=== PATIENT | male | born 1995 | race Caucasian/White ===

== ENCOUNTER 2019-09-26 11:30 | Emergency (ER) | payer OTHER, SELFPAY ==
[2019-09-26 11:45] VITALS: BP 103/57; PULSE 120; RESP 17; TEMP 39.2; O2SAT 96; BMI 19.8
--- NOTE | 2019-09-26 11:53 | ED_ITS ---
Entered by Mansi Maher, acting as scribe for Porter Wiseman DO Sep 26, 2019 11:30 HPI - SOB/Dyspnea General: Chief Complaint: Shortness of Breath/Dyspnea Stated Complaint: N/V/D COUGH Time Seen by Provider: 09/26/19 12:06 History of Present Illness: HPI Narrative: 24 yo male presents with shortness of breath. Pt states that he has asthma and when he is sick it will flair up. Pt states that he has been sick for about 2 days. pt states that he feels weak and nauseated. Pt states that he feels dehydrated and has body aches. MD elicited complaint: shortness of breath and cough Pertinent past history: asthma Onset (ago): day(s) (2) Severity: moderate Exacerbating factors: movement Known history of: asthma Associated symptoms: Reports extremity pain, fever(s) and nausea; Deny chest pain, dizziness, orthopnea, palpitations, polydipsia, polyuria or syncope Treatment prior to arrival: none Review of Systems Const: Reports: fever, fatigue and malaise; Denies: chills, body aches or night sweats Eyes: Denies: change in vision or blurry vision ENMT: Denies: throat pain, oral sores/lesions, dental pain, nasal discharge or nasal congestion Card: Denies: chest pain, palpitations, irregular heart rhythm, edema, syncope, shortness of breath on exertion, shortness of breath when lying down or leg pain with exertion Resp: Reports: shortness of breath and wheezing; Denies: productive cough or non-productive cough GI: Reports: nausea : Denies: flank pain, difficulty urinating, painful urination, urinary frequency, urinary urgency, urinary incontinence or blood in urine Musc: Reports: back pain, extremity pain and joint pain; Denies: neck pain, extremity swelling or joint swelling Skin/Breast: Denies: rash, itching or redness Neuro: Denies: headache, numbness in extremities, weakness in extremities, changes in sensation, lack of coordination, difficulty walking, frequent falls, dizziness, vertigo or confusion Psych: Denies: anxiety, depression, loss of interest, visual hallucinations, auditory hallucinations, suicidal ideation or homicidal ideation Endo: Denies: excessive urination, excessive thirst, tired all the time or cold intolerance Rk/Lymph: Denies: easy bruising, easy bleeding, petechiae, enlarged lymph nodes or tender lymph nodes PFSH ED PFSH: Statuses (acute, chronic, etc) shown below reflect problem list status as previously entered and may not be historically accurate Medical History Asthma (Acute) Social History Smoking and tobacco status: never smoked Physical Exam Const: COMMON NORMALS: average body habitus, oriented x3 and alert GENERAL APPEARANCE: cooperative, comfortable, well kempt and well developed NUTRITIONAL APPEARANCE: not obese ORIENTATION/CONSCIOUSNESS: Yes awake, Yes oriented to person and Yes oriented to place HENMT: COMMON NORMALS: normocephalic, head/scalp atraumatic, EAC's normal, TM's normal bilaterally, external nose normal, moist oral mucous membranes and oropharynx normal HEAD & SCALP: normocephalic and atraumatic NOSE: external nose normal EXTERNAL AUDITORY CANAL: EAC's normal TYMPANIC MEMBRANE: TM's normal bilaterally MOUTH: oral and palatal mucosa normal, lip normal and tongue normal THROAT: posterior oropharynx normal and tonsils normal Eye: COMMON NORMALS: PERRL, EOMs intact bilaterally, conjunctivae normal and no scleral icterus CONJUNCTIVA: Yes conjunctivae normal PUPIL: Yes PERRL Neck/C-Spine: COMMON NORMALS: full ROM, no lymphadenopathy, supple, no meningeal signs and thyroid normal THYROID: thyroid normal and asymmetrical Lymph: LYMPHATIC: no lymphadenopathy noted Resp: COMMON NORMALS: normal respiratory effort, no retractions, no use of accessory muscles and clear to auscultation bilaterally AUSCULTATION: clear to auscultation bilaterally Cardio: COMMON NORMALS: regular rate and regular rhythm RATE: regular rate RHYTHM: regular rhythm HEART SOUNDS: no murmurs GI: COMMON NORMALS: normal to inspection, nondistended, normoactive bowel sounds, soft to palpation and no hepatosplenomegaly PALPATION: Yes soft and Yes no hepatosplenomegaly : COMMON NORMALS: Yes no CVA tenderness BLADDER/KIDNEY EXAM: Yes no CVA tenderness Back/Pelvis: COMMON NORMALS: no CVA tenderness LUMBAR SPINE/LOWER BACK: Yes normal to inspection Extremity: COMMON NORMALS: no clubbing, cyanosis or edema, no calf tenderness and no pedal edema Neuro: COMMON NORMALS: oriented x3 SENSORIUM/ORIENTATION: Yes alert, Yes oriented to person and Yes oriented to place MENINGEAL SIGNS: Yes no meningeal signs Psych: APPEARANCE: Yes well kempt Skin: COMMON NORMALS: no rashes or lesions noted and skin turgor normal GENERAL SKIN EXAM: no rashes or lesions noted and turgor normal Course Vital Signs: Vital signs: Vital Signs Temperature 102.5 F H 09/26/19 11:45 Pulse Rate 113 H 09/26/19 14:49 Respiratory Rate 16 09/26/19 14:49 Blood Pressure 110/66 09/26/19 14:49 Pulse Oximetry 96 09/26/19 14:49 MDM - SOB/Dyspnea Lab Data: Attestation: I reviewed the patient's lab results. Labs: Lab Results 09/26/19 Range/Units 12:00 Influenza Type A A g Positive H (Negative) POC Influenza B Ag Negative (Negative) Discharge Plan Discharge Patient Disposition: Home, Self-Care Clinical Impression: Influenza A Condition: Stable Prescriptions: New Medrol (Cholo) 4 mg tablets,dose pack See Rx Instructions .ROUTE .COMPLEX Qty: 21 RF: 0 albuterol sulfate 90 mcg/actuation HFA aerosol inhaler 2 inh INHALATION Q4H 21 Days Qty: 18 RF: 0 Tamiflu 75 mg capsule 75 mg PO BID 5 Days Qty: 10 RF: 0 Discharge Orders: Discharge Order (Routine); Ordered 09/26/19 Ordered By: Porter Wiseman Referrals: [facility] [Other] Discharge Diet: Usual diet Discharge Activity: Increase activity as tolerated Activity Restrictions/Additional Instructions: Follow-up as needed if worsens return Discharge Date/Time: 09/26/19 14:50 Coding Level of Care Code ED Chief I Dispatcher for Chg Fwd Exam Problem Focused The documentation recorded by the Gunnar dotson Kialy, accurately reflects the service I personally performed and the decisions made by Ivone benton Curtis L, DO Sep 26, 2019 11:30
--- NOTE | 2019-09-26 12:31 | XR_ITS ---
WS: [id number] ONE VIEW CHEST HISTORY: 24 years old Male with cough AP upright chest comparison 10/22/2008 FINDINGS: No pneumothorax, pleural effusion or consolidation/atelectasis. Cardiomediastinal silhouette and pulm onary vascular markings are unremarkable. No subdiaphragmatic free air. No fracture seen. XR/XR chest 1V portable [id number] IMPRESSION: No acute cardiopulmonary findings.
[2019-09-26] MEDS: oseltamivir phosphate 75 mg Capsule PO (12:38)
[2019-09-26] MEDS: sodium chloride 0.9% 1,000 ML 999 ML IV (12:38)
[2019-09-26 12:49] LABS: Influenza A by IFA Positive (Negative); Influenza B by IFA Negative (Negative)
[2019-09-26 12:55] VITALS: PULSE 103; RESP 16; O2SAT 98
[2019-09-26] MEDS: ipratropium-albuterol 3 mL Neb INHALATION (12:55)
[2019-09-26 12:58] VITALS: PULSE 112
[2019-09-26 14:49] VITALS: BP 110/66; PULSE 113; RESP 16; O2SAT 96
== END 2019-09-26 14:50 | disposition home or self-care (01) ==
PROVIDERS: Nurse Practitioner Family; Emergency Provider Family Medicine
DX: J09.X2 Influenza due to identified novel influenza A virus with other respiratory manifestations (principal); J45.909 Unspecified asthma, uncomplicated
CPT/HCPCS: 71045; 87804; 94640; 96360; 96361; 96374; 96375; 99283; J2930; J7030

== ENCOUNTER 2023-09-11 06:54 | Emergency (ER) | payer OTHER, SELFPAY ==
[2023-09-11 07:03] VITALS: BP 146/122; PULSE 108; RESP 18; O2SAT 97; BMI 22.8
--- NOTE | 2023-09-11 07:12 | XR_ITS ---
WS: [id number] XR ankle RT min 3V* [id number] REASON FOR EXAM: trauma FINDINGS: No fracture identified. Joint spaces of the right ankle are intact and well preserved. No soft tissue radiopaque foreign body. IMPRESSION: No acute abnormality.
--- NOTE | 2023-09-11 07:12 | XR_ITS ---
WS: [id number] XR foot RT min 3V* [id number] REASON FOR EXAM: trauma FINDINGS: Nondisplaced transverse fracture of the base of the fifth metatarsal, zone 1. Minimally displaced oblique fracture through the midshaft of the third metatarsal. No other fracture or focal bone abnormality identified. The joint spaces of the forefoot, midfoot, and hindfoot are intact and well preserved. No radiopaque soft tissue foreign body. IMPRESSION: Foot fractures as above.
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
--- NOTE | 2023-09-11 07:17 | XR_ITS ---
WS: [id number] XR knee LT 3V* [id number] REASON FOR EXAM: pain FINDINGS: No joint effusion. No fracture identified. The joint spaces of the left knee are intact and well preserved. No radiopaque soft tissue foreign body IMPRESSION: No acute abnormality identified.
[2023-09-11 07:36] VITALS: BP 155/78; PULSE 109; O2SAT 98
--- NOTE | 2023-09-11 08:09 | DCPLANNER ---
Message sent to Podiatry for a follow up appointment on a third metatarsal fracture.
[2023-09-11 08:19] VITALS: BP 127/68; PULSE 108; O2SAT 98
== END 2023-09-11 08:15 | disposition home or self-care (01) ==
PROVIDERS: Emergency Provider Family Medicine
DX: S92.331A Displaced fracture of third metatarsal bone, right foot, initial encounter for closed fracture (principal); S92.354A Nondisplaced fracture of fifth metatarsal bone, right foot, initial encounter for closed fracture; V89.2XXA Person injured in unspecified motor-vehicle accident, traffic, initial encounter
CPT/HCPCS: 29515; 73562; 73610; 73630; 99283; E0114

== ENCOUNTER 2023-09-18 07:37 | Day surgery (SDC) | payer OTHER, SELFPAY ==
[2023-09-18] VITALS (10 sets, daily range): BP systolic 104–121; BP diastolic 62–83; PULSE 63–84; RESP 10–20; TEMP 36.1–36.9; O2SAT 98–100; BMI 22.8
--- NOTE | 2023-09-18 | XR_ITS ---
WS: [id number] Right foot, C-arm fluoroscopy, 09/18/2023 Clinical Data: [facility] P[facility] Comparison: Right foot, 09/11/2023 Findings: Dr. Henderson applied a lateral plate with screws to the base of the right fifth metatarsal to repair a fr acture. Impression: Internal fixation of fracture of base of right fifth metatarsal.
[2023-09-18] MEDS: gabapentin 300 mg Capsule PO (08:33)
[2023-09-18] MEDS: acetaminophen 1,000 MG/100 ML PIGGYBACK 400 MG IV (08:33)
--- NOTE | 2023-09-18 08:44 | ANES.PREANE2 ---
Pre-Anesthetic Assessment Height/Weight: Height 1.73 m Weight 68 kg Temp Pulse Resp BP Pulse Ox O2 Del Method 98.4 F 84 14 121/83 98 Room Air 09/18/23 08:01 09/18/23 08:01 09/18/23 08:01 09/18/23 08:01 09/18/23 08:01 09/18/23 08:04 Preop Diagnosis: Right foot Petty fracture Operation Date: 09/18/23 09:20 Proposed Procedures p ORIF Metatarsal(right 5th)(Right) - Pee Henderson DPM Familial anesthetic complications: none Was Beta Radha taken within 24 hours: N/A Was Clonidine taken within 24 hours: N/A Last intake: Intake Last Liquid Date 09/17/23 Last Liquid Time 22:00 Last Solid Date 09/17/23 Last Solid Time 18:00 Social No alcohol and No tobacco Exam alert, oriented x 3, clear to auscultation bilaterally and regular rate & rhythm Airway Mallampati: Class I Dentition: full Pulmonary Asthma Anesthetic Plan ASA status: 2 Anesthesia: MAC Risk of > 500 ml blood loss (7ml/kg in children): No Medications/Allergies Home Medications Medication Instructions Recorded Confirmed Last Taken Type No Known Home Medications 09/11/23 09/17/23 Unknown History Allergies Allergy/AdvReac Type Severity Reaction Status Date / Time amoxicillin Allergy Unknown Verified 09/11/23 14:47 Penicillins Allergy ALGY-Anaphy Verified 09/11/23 14:47 laxis [facility] Anesthesia Medical History (Updated 09/15/23 @ 21:24 by Pee Henderson DPM) Asthma Social History Smoking and tobacco/nicotine status: never used tobacco/nicotine Data Anesthesia Cardiac Studies: No Data to Display
[2023-09-18] MEDS: vancomycin 1,000 MG in sodium chloride 0.9% 250 ML 250 MG IV (08:53)
--- NOTE | 2023-09-18 08:57 | W.PM.OPSUD ---
Surgery/Procedure H&P Update DATE OF PROCEDURE: September 18, 2023 DATE H&P PERFORMED: 09/11/23 H&P UPDATE INFORMATION: I have reviewed H&P completed within last 30 days, I have examined patient prior to procedure, No changes to prior documentation and H&P is in [facility] EMR on date indicated PREOP DIAGNOSIS: Right foot Petty fracture PLANNED PROCEDURE: Operation Date: 09/18/23 09:20 Proposed Procedures p ORIF Metatarsal(right 5th)(Right) - Pee Henderson DPM
[2023-09-18] MEDS: sodium chloride 0.9% 1,000 ML 30 ML IV (09:01)
[2023-09-18] MEDS: BUPivacaine 0.5% INJ 30 mL INJECTION (09:45)
--- NOTE | 2023-09-18 11:04 | W.PM.BPON ---
Date of procedure: 09/18/2023 Surgeon name: Phylicia ParkPMiguel Ángel Blocking Machine Tender(s) name(s): Maureen Procedure(s) performed: Open reduction internal fixation right fifth metatarsal Petty fracture Description of findings: Fifth metatarsal base fracture requiring plate and screw fixation Estimated blood loss: 10 cc Tourniquet time: 80 minutes Specimen(s) removed: None Post-operative diagnosis: Right foot fifth metatarsal base fracture
--- NOTE | 2023-09-18 12:15 | ANE.PACU2 ---
Inpatient post-anesthesia follow up: Airway intact: Yes Vital signs: Temperature 97.0 F Pulse Rate 83 Respiratory Rate 16 Blood Pressure 120/76 Pulse Oximetry 100 Oxygen Delivery Me thod Room Air Oxygen Flow Rate Fraction of Inspir ed Oxygen Hydration adequate: Yes Nausea and vomiting: No Pain level: 1 Mental status: Baseline
--- NOTE | 2023-09-18 18:41 | PM.OP ---
Operative Report Date of procedure: September 18, 2023 Pre-op diagnosis: Right foot 5th metatarsal Petty fracture Post-op diagnosis: Same Post-op findings: 5th metatarsal base fracture right foot Procedure done: ORIF right 5th metatarsal base fracture CPT 84949 Implants: 5th metatarsal hook plate [employer] medical Surgeon: Pee Henderson DPM Estimated blood loss: 10cc's 80 minutes Complications: None Procedure: Patient is a 28-year-old male that has a history of right foot fifth metatarsal base fracture. The extent of injury necessitates open reduction internal fixation. A lengthy discussion regarding the procedure, including risks and complications has been had with the patient and is noted in the recent clinic note. Written and verbal consent have been obtained. All patient questions have been answered to the patient?s satisfaction. No written or verbal guarantees have been given or implied. The patient has been NPO since midnight. The history has been reviewed and the history and physical is current. The signed consent was confirmed and placed in the patient chart. Patient imaging has been reviewed and is consistent with the diagnosis. Under mild sedation, the patient was brought into the operating room and placed on the table in the supine position. IV antibiotics were given by the anesthesia team as preoperative surgical prophylaxis. General sedation was then performed by the anesthesiateam. A local field block was then performed using 0.5% Marcaine plain. A pneumatic tourniquet was then placed about the right thigh. The operative extremity was then prepped and draped in the usual fashion. The extremity was then elevated and exsanguinated before the tourniquet was inflated to 325 mmHg. After inflation, the following procedure was then performed. Attention was directed to the lateral aspect of the right foot where a guidewire was inserted percutaneously at the base of the fifth metatarsal. The wire was driven across the fracture site down the medullary canal of the fifth metatarsal. This was visualized on AP and lateral projections of the C arm. Good positioning of the wire was visualized. After confirming position of the wire a 15 blade was used to make a stab incision at the insertion of the wire. Blunt dissection was carried down through subcutaneous and superficial fascia using a mosquito hemostat to the base of the fifth metatarsal. A skin protector was then placed over the wire and a drill was used to drill over the wire down the medullary canal. This was reamed to the appropriate with in preparation for the solid screw. The tap was then inserted into the intramedullary canal. A 5.5 millimeter screw was inserted across fracture site. However, upon insertion of the screw the base of the fifth metatarsal was shifted inferiorly and laterally. There was noted to be no purchase of the head of the screw into the fifth metatarsal base. Screw was removed. It was decided at this point that the foot would need to be opened further and 1/5 metatarsal base footplate would need to be used for the reduction. A #15 blade was used to extend the incision 4 cm distally. Dissection was carried out to expose the fifth metatarsal base fracture. This was then reduced into the appropriate position and 1/5 metatarsal hook plate was positioned appropriately to the fifth metatarsal base. The peroneus brevis tendon was identified and protected during the entirety of this procedure. The fracture was reduced and the holes of the plate were drilled and filled in standard fashion using locking screws. The site was then irrigated with copious amounts of sterile saline before attention was directed to closure. Deep tissue was closed with 3-0 Vicryl followed by subcuticular closure with 4-0 Vicryl and skin closure with 4-0 nylon. The incision site was then dressed with Xeroform, 4 x 4 gauze, Kerlix, Regis before operative extremity was placed in a cam boot. The tourniquet was let down and good hyperemic response was noted to all digits of the right foot. The patient tolerated the procedure and anesthesia well and without complication. The patient was transported from the operating room to the recovery room with vital signs stable and vascular status intact to all digits of the right foot. The patient was given both written and verbal instructions to remain nonweightbearing to the operative extremity, to keep dressings/splint clean, dry and intact and to take pain medication as directed. The patient will follow-up in the outpatient setting at their scheduled appointment. The patient was discharged with my personal number and was instructed to call if any questions or issues should arise. They were discharged home once anesthesia criteria was met.
== END 2023-09-18 12:15 | disposition home or self-care (01) ==
PROVIDERS: PCP Family Medicine; Visit Provider Podiatrist Foot & Ankle Surgery
PROC: (CPT 28485; principal; 2023-09-18 09:10)
DX: S92.351A Displaced fracture of fifth metatarsal bone, right foot, initial encounter for closed fracture (principal); V89.2XXA Person injured in unspecified motor-vehicle accident, traffic, initial encounter
CPT/HCPCS: 28485; 73620; 76000; C1713; J0131; J1100; J1885; J2405; J2704; J3010; J3370; J3490; J7030; J7050

== ENCOUNTER → 2023-10-02 12:44 | Outpatient (BNVA) | payer OTHER, SELFPAY | PROVIDERS: PCP Family Medicine; Visit Provider Podiatrist Foot & Ankle Surgery | DX: S92.351D Displaced fracture of fifth metatarsal bone, right foot, subsequent encounter for fracture with routine healing; X58.XXXD Exposure to other specified factors, subsequent encounter | CPT/HCPCS: 73630 ==

== ENCOUNTER → 2023-10-23 14:22 | Outpatient (BNVA) | payer OTHER, SELFPAY | PROVIDERS: PCP Family Medicine; Visit Provider Podiatrist Foot & Ankle Surgery | DX: Z98.890 Other specified postprocedural states | CPT/HCPCS: 73630 ==

== ENCOUNTER → 2023-11-06 14:20 | Outpatient (BNVA) | payer OTHER, SELFPAY | PROVIDERS: PCP Family Medicine; Visit Provider Podiatrist Foot & Ankle Surgery | DX: Z98.890 Other specified postprocedural states | CPT/HCPCS: 73630 ==

== ENCOUNTER → 2024-01-10 11:37 | Outpatient (BNVA) | payer OTHER, SELFPAY | PROVIDERS: PCP Family Medicine; Visit Provider Podiatrist Foot & Ankle Surgery | DX: Z98.890 Other specified postprocedural states | CPT/HCPCS: 73630 ==